=== PATIENT | female | born 1935 | race Two or more races ===

== ENCOUNTER 2022-11-16 19:25 | Emergency (ER) | payer OTHER ==
[~2022-11-16] VITALS: Ht 160 cm; Wt 77.1 kg
== END 2022-11-16 22:35 | disposition home or self-care (01) ==
LOC: ER 19:25
DX: S40.011A Contusion of right shoulder, initial encounter (principal); S00.93XA Contusion of unspecified part of head, initial encounter; W18.30XA Fall on same level, unspecified, initial encounter; Y93.89 Activity, other specified; Y92.89 Other specified places as the place of occurrence of the external cause; Y99.9 Unspecified external cause status